=== PATIENT | female | born 1970 | race Caucasian/White ===

== ENCOUNTER → 2019-02-13 | Outpatient (CLI) | payer BC ==
[~2019-02-13] MED LIST: DAYPRO600 M1 PO; LO/OVRAL-28 301 TA1 PO; MEDROL DOSEPAK4 MG PO; METFORMIN ER500 MG PO; MOBIC7.5 MG PO; MOTRIN800 MG PO; PRAVASTATIN SOD80 MG PO; TRAMADOL HCL50 MG PO; ULTRAM50 MG PO; VICODIN 500 MG-1 TAB PO; VITAMIN D5000 IU PO; ZESTRIL10 MG PO
== END | disposition home or self-care (01) ==
LOC: RAD 17:24
DX: J43.9 Emphysema, unspecified (principal); I10 Essential (primary) hypertension; E11.9 Type 2 diabetes mellitus without complications; Z87.891 Personal history of nicotine dependence

== ENCOUNTER → 2021-09-30 | Outpatient (CLI) | payer OTHER | END | disposition home or self-care (01) | LOC: MAMMO 08:30 | PROVIDERS: ATTEND Internal Medicine | DX: Z12.31 Encounter for screening mammogram for malignant neoplasm of breast (principal) ==

== ENCOUNTER → 2022-03-17 | Outpatient (CLI) | payer OTHER | END | disposition home or self-care (01) | LOC: RAD 10:12 | PROVIDERS: ATTEND Chiropractor | DX: M47.816 Spondylosis without myelopathy or radiculopathy, lumbar region (principal); M25.78 Osteophyte, vertebrae; M43.8X6 Other specified deforming dorsopathies, lumbar region ==

== ENCOUNTER → 2023-10-09 | Outpatient (CLI) | payer OTHER | LOC: US 09:00 → RAD 09:09 | PROVIDERS: ATTEND Internal Medicine | DX: E04.1 Nontoxic single thyroid nodule (principal); E05.01 Thyrotoxicosis with diffuse goiter with thyrotoxic crisis or storm ==

== ENCOUNTER → 2025-03-05 | Outpatient (CLI) | payer BC ==
[2025-03-05 13:46] LABS: BASO # 0.0 10*3/uL (0.0-0.1); BASO % 0.5 % (0.0-1.0); EOS # 0.1 10*3/uL (0.0-0.4); EOS % 1.1 % (1.0-4.0); MEAN CELL VOLUME 98.9 fl (81.0-99.0); MEAN CORPUSCULAR HGB 32.7 pg (27.0-31.0); MEAN PLATELET VOLUME 11.7 fl (9.6-12.3); MONO # 0.4 10*3/uL (0.1-1.0); MONO % 4.2 % (3.0-9.0); NEUT # 5.2 10*3/uL (2.3-7.9); NEUT % 63.2 % (47.0-73.0); NUCLEATED RED BLOOD CELL 0.0 % (0.0-0.0); NUCLEATED RED BLOOD CELL 0.0 10*3/uL (0.0-0.0); PLATELET COUNT AUTOMATED 206 10*3/uL (130-400); RED CELL DISTRI WIDTH 12.5 % (0-14.5)
[2025-03-05 14:02] LABS: BUN 9 mg/dl (9-23); FREE T4 1.31 ng/dl (0.89-1.76); LDL CHOLESTEROL 63 mg/dL (9-159); SGPT/ALT 14 U/L (5-49)
[2025-03-05 14:04] LABS: VITAMIN D, 25-HYDROXY 58.3 ng/mL (30-100)
== END | disposition home or self-care (01) ==
LOC: LAB 12:37 → US 14:00
PROVIDERS: ATTEND Internal Medicine
DX: I65.23 Occlusion and stenosis of bilateral carotid arteries (principal); I10 Essential (primary) hypertension; E78.2 Mixed hyperlipidemia; E11.65 Type 2 diabetes mellitus with hyperglycemia; E66.9 Obesity, unspecified; R53.83 Other fatigue; E53.9 Vitamin B deficiency, unspecified; E55.9 Vitamin D deficiency, unspecified; R42 Dizziness and giddiness; F17.210 Nicotine dependence, cigarettes, uncomplicated

== ENCOUNTER → 2025-04-03 | Outpatient (CLI) | payer BC | END | disposition home or self-care (01) | LOC: US 08:06 | PROVIDERS: ATTEND Internal Medicine | DX: E04.1 Nontoxic single thyroid nodule (principal) ==

== ENCOUNTER → 2025-06-04 | Outpatient (CLI) | payer BC | END | disposition home or self-care (01) | LOC: RAD 13:40 | PROVIDERS: ATTEND Internal Medicine | DX: M25.812 Other specified joint disorders, left shoulder (principal); M25.512 Pain in left shoulder ==